=== PATIENT | female | born 1990 | race African-American/Black ===

== ENCOUNTER 2020-01-06 08:16 | Emergency (ER) | payer OTHER ==
[~2020-01-06] VITALS: Ht 165.1 cm; Wt 90.7 kg
[2020-01-06] MEDS ORDERED: BIRTH CONTROL (08:58)
[2020-01-06 09:53] VITALS: BP 114/68
== END 2020-01-06 09:53 | disposition home or self-care (01) ==
LOC: ER 08:16
DX: J02.9 Acute pharyngitis, unspecified (principal)

== ENCOUNTER 2020-01-15 16:14 | Emergency (ER) | payer OTHER ==
[~2020-01-15] VITALS: Ht 165.1 cm; Wt 92.5 kg
[~2020-01-15 16:14] MED LIST: BIRTH CONTROL
[2020-01-15 16:58] LABS: ABSOLUTE NEUTROPHILS 3.5 thou/uL (1.4-8.2); BASOPHILS 0.6 % (0.0-2.0); EOSINOPHILS 0.6 % (0.0-3.0); HEMATOCRIT 42.3 % (37.0-47.0); HEMOGLOBIN 14.7 gm/dL (12.0-15.0); LYMPHOCYTES 27.4 % (24.0-44.0); MCH 32.1 pg (26.0-34.0); MCHC 34.7 g/dL (28.0-37.0); MCV 92.3 fL (80.0-100.0); MONOCYTES 6.9 % (1.0-8.0); PLATELET COUNT 208 thou/uL (150-400); POLYS 64.5 % (36.0-66.0); RBC 4.59 mil/uL (4.20-5.00); RDW 12.2 % (10.5-14.5); WBC 5.4 thou/uL (4.0-11.0)
[2020-01-15 17:09] LABS: CALCIUM 8.9 mg/dL (8.5-10.1); CREATININE 1.1 mg/dL (0.6-1.0)
[2020-01-15 17:14] LABS: ALBUMIN 3.3 g/dL (3.4-5.0); TOTAL BILIRUBIN 0.3 mg/dL (0.2-1.0); TOTAL PROTEIN 7.2 g/dL (6.4-8.2)
[2020-01-15 18:10] LABS: URINE BILIRUBIN NEGATIVE (Negative); URINE BLOOD NEGATIVE (Negative); URINE CLARITY CLEAR; URINE COLOR YELLOW; URINE GLUCOSE-RANDOM* NEGATIVE (Negative); URINE KETONES NEGATIVE (Negative); URINE LEUKOCYTES-REFLEX NEGATIVE (Negative); URINE NITRITE-REFLEX NEGATIVE (Negative); URINE PROTEIN (DIPSTICK) NEGATIVE (Negative); URINE SPECIFIC GRAVITY <= 1.005 (1.005-1.035); URINE UROBILINOGEN 0.2 E.U./dl (0.2-1.0)
[2020-01-15 18:19] LABS: AMP/METHAMP Negative (Negative); BARBITURATES Negative (Negative); BENZODIAZEPINES Negative (Negative); COCAINE Negative (Negative); METHADONE Negative (Negative); OPIATES Negative (Negative); PCP Negative (Negative)
[2020-01-15] MEDS ORDERED: NAPROSYN500 MG PO (18:35)
[2020-01-15] MEDS ORDERED: TRAMADOL 50 MG50 MG PO (18:35)
[2020-01-15 18:37] VITALS: BP 100/48
== END 2020-01-15 18:37 | disposition home or self-care (01) ==
LOC: ER 16:14
PROVIDERS: Emergency Medicine
DX: S10.93XA Contusion of unspecified part of neck, initial encounter (principal); V49.9XXA Car occupant (driver) (passenger) injured in unspecified traffic accident, initial encounter; Y93.89 Activity, other specified; Y92.89 Other specified places as the place of occurrence of the external cause; Y99.8 Other external cause status

== ENCOUNTER 2021-01-14 12:55 | Emergency (ER) | payer OTHER ==
[~2021-01-14] VITALS: Ht 165.1 cm; Wt 109.8 kg
[~2021-01-14 12:55] MED LIST changes: +NAPROSYN500 MG PO; +TRAMADOL 50 MG50 MG PO
[2021-01-14 13:06] VITALS: BP 110/68
[2021-01-14 13:47] LABS: URINE BILIRUBIN NEGATIVE (Negative); URINE BLOOD NEGATIVE (Negative); URINE CLARITY CLEAR; URINE COLOR YELLOW; URINE GLUCOSE-RANDOM* NEGATIVE (Negative); URINE KETONES NEGATIVE (Negative); URINE LEUKOCYTES-REFLEX NEGATIVE (Negative); URINE NITRITE-REFLEX NEGATIVE (Negative); URINE PROTEIN (DIPSTICK) NEGATIVE (Negative); URINE SPECIFIC GRAVITY <= 1.005 (1.005-1.035); URINE UROBILINOGEN 0.2 E.U./dl (0.2-1.0)
[2021-01-14 13:58] LABS: ABSOLUTE NEUTROPHILS 4.8 thou/uL (1.4-8.2); BASOPHILS 0.4 % (0.0-2.0); EOSINOPHILS 2.6 % (0.0-3.0); HEMATOCRIT 40.8 % (37.0-47.0); HEMOGLOBIN 14.1 gm/dL (12.0-15.0); LYMPHOCYTES 19.9 % (24.0-44.0); MCH 31.5 pg (26.0-34.0); MCHC 34.5 g/dL (28.0-37.0); MCV 91.2 fL (80.0-100.0); MONOCYTES 7.5 % (1.0-8.0); PLATELET COUNT 213 thou/uL (150-400); POLYS 69.6 % (36.0-66.0); RBC 4.48 mil/uL (4.20-5.00); RDW 12.2 % (10.5-14.5); WBC 6.9 thou/uL (4.0-11.0)
[2021-01-14 14:03] LABS: CALCIUM 9.3 mg/dL (8.5-10.1); CREATININE 1.1 mg/dL (0.6-1.0); POTASSIUM 4.2 mmol/L (3.5-5.1)
[2021-01-14 14:09] LABS: ALBUMIN 3.5 g/dL (3.4-5.0); TOTAL BILIRUBIN 0.4 mg/dL (0.2-1.0); TOTAL PROTEIN 7.3 g/dL (6.4-8.2)
--- NOTE | 2021-01-14 15:44 | EKG ---
[address] [address] ELECTROCARDIOGRAM REPORT Name: MANUEL ALARCON Room #: [id number] Admission: 01/14/21 Attend Phys: Discharge: Date of : 89 Report #: [id number] [facility] ED Test Date: 2021-01-14 Test Time: 13:02:56 Pat Name: MANUEL ALARCON Department: Room: Gender: F [employer]ile Driver Operator: SUSIE : 1990 Requested By: Marshall Tierney Order Number: [id number] MD: Meño Walsh Measurements Intervals [place] Rate: 81 P: 23 AK: 128 QRS: 52 QRSD: 80 T: 8 QT: 348 QTc: 404 Interpretive Statements Sinus rhythm No previous ECG available for comparison Electronically Signed On 01-14-2021 15:44:27 CDT by Meño Walsh [email or web address] <ELECTRONICALLY SIGNED> By: Meño Walsh MD, [facility] 01/14/21 1544 1302 1302 Meño Walsh MD, FACC /EPI
[2021-01-14] MEDS ORDERED: MEDI-MECLIZINE25 MG PO (17:24)
== END 2021-01-14 17:24 | disposition home or self-care (01) ==
LOC: ER 12:55
PROVIDERS: Emergency Medicine
DX: J02.9 Acute pharyngitis, unspecified (principal); R42 Dizziness and giddiness; Z20.822 Contact with and (suspected) exposure to COVID-19; Z79.899 Other long term (current) drug therapy

== ENCOUNTER 2021-06-25 08:47 | Emergency (ER) | payer OTHER ==
[~2021-06-25] VITALS: Ht 165.1 cm; Wt 108.9 kg
[~2021-06-25 08:47] MED LIST changes: +MEDI-MECLIZINE25 MG PO
[2021-06-25 10:10] VITALS: BP 127/80
== END 2021-06-25 10:10 | disposition home or self-care (01) ==
LOC: ER 08:47
DX: U07.1 COVID-19 (principal)